=== PATIENT | female | born 1940 | race Caucasian/White ===

== ENCOUNTER 2018-08-16 13:51 | Emergency (ER) | payer OTHER ==
[~2018-08-16] VITALS: Ht 170.2 cm; Wt 65.8 kg
[~2018-08-16 13:51] MED LIST: Aspirin EC81 MG; DOCU100 PO; HYOS.125 SL; LISI5 PO; LORA1 PO; ONDA8ODT MM; OXYACE5T PO; PROM25 PO; Valium5 MG PO
[2018-08-16] MEDS ORDERED: Percocet 5-3251 EACH PO (20:07)
== END 2018-08-16 20:26 | disposition home or self-care (01) ==
LOC: ER 13:51
DX: S53.124A Posterior dislocation of right ulnohumeral joint, initial encounter (principal); W18.30XA Fall on same level, unspecified, initial encounter; Z88.0 Allergy status to penicillin; Z88.6 Allergy status to analgesic agent; Z88.1 Allergy status to other antibiotic agents; Z79.899 Other long term (current) drug therapy; F41.9 Anxiety disorder, unspecified
CPT/HCPCS: 24600; 36415; 73070; 73110; 76000; 96374-59; 96375-59; 96376-59; 99283-25; A9270-GY; J2405; J3010; J7030